=== PATIENT | male | born 1960 | race Caucasian/White ===

== ENCOUNTER → 2017-10-12 | Outpatient (CLI) | payer OTHER ==
--- NOTE | 2017-10-12 08:59 | CT ---
EXAMINATION TYPE: CT chest w con DATE OF EXAM: 10/12/2017 COMPARISON: Recent previous chest x-ray HISTORY: Abnormal cxr CT DLP: 543 mGycm Automated exposure control for dose reduction was used. CONTRAST: CT scan of the chest is performed with IV Contrast, patient injected with 100 ml mL of Omnipaque 300. FINDINGS: Multilevel degenerative disc disease seen with a age indeterminate but probable chronic com pression deformity in the midthoracic region. There is no pneumothorax. Biapical pleural thickening noted. Mild changes of COPD. Pleural-based thic kening noted posteriorly within the right lung no suspicious area of consolidation for pneumonia. Sub segmental changes involving both lung bases typical atelectasis. Within the left lower lobe axial image 49 there is a 4 mm pulmonary nodule. No pathologic adenopathy. Aorta of normal caliber. IMPRESSION: 1. 4 mm left lower lobe pulmonary nodule. Finding most likely benign in the absence of a history of p revious malignancy. Recommend follow-up 6 month study to assess for stability of size.
== END | disposition home or self-care (01) ==
LOC: RADCTMAIN 07:29
PROVIDERS: ATTEND Family Medicine
DX: R91.1 Solitary pulmonary nodule (principal)
CPT/HCPCS: 71260; 36415; Q9967

== ENCOUNTER → 2018-08-08 | Outpatient (CLI) | payer OTHER ==
[2018-08-08 17:07] LABS: Basophils # (A) 0.1 k/uL (0-0.2); Basophils % (A) 1 %; Eosinophils # (A) 0.2 k/uL (0-0.7); Eosinophils % (A) 4 %; HCT 39.9 % (39.0-53.0); Lymphocytes # (A) 1.7 k/uL (1.0-4.8); Lymphocytes % (A) 41 %; MCH 32.8 pg (25.0-35.0); MCHC 32.7 g/dL (31.0-37.0); MCV 100.4 fL (80.0-100.0); Monocytes # (A) 0.2 k/uL (0-1.0); Monocytes % (A) 6 %; Neutrophils # (A) 1.9 k/uL (1.3-7.7); Neutrophils % (A) 46 %; Platelet Count 267 k/uL (150-450); RBC 3.97 m/uL (4.30-5.90); RDW 12.8 % (11.5-15.5); WBC 4.2 k/uL (3.8-10.6)
[2018-08-08 17:33] LABS: ALT 36 U/L (21-72); AST 20 U/L (17-59); Albumin 3.9 g/dL (3.5-5.0); Alkaline Phosphatase 62 U/L (38-126); Anion Gap 5 mmol/L; Blood Urea Nitrogen 9 mg/dL (9-20); Carbon Dioxide 27 mmol/L (22-30); Chloride 102 mmol/L (98-107); Glucose 102 mg/dL (74-99); Potassium 4.2 mmol/L (3.5-5.1); Sodium 134 mmol/L (137-145); Total Bilirubin 0.8 mg/dL (0.2-1.3); Total Protein 6.4 g/dL (6.3-8.2)
== END | disposition home or self-care (01) ==
LOC: LABWHC1 16:36
PROVIDERS: ATTEND Nurse Practitioner Acute Care
DX: Z51.81 Encounter for therapeutic drug level monitoring (principal)
CPT/HCPCS: 36415; 80053; 80183; 85025

== ENCOUNTER → 2020-05-06 | Outpatient (CLI) | payer OTHER ==
--- NOTE | 2020-05-07 07:42 | CT ---
EXAMINATION TYPE: CT chest wo con DATE OF EXAM: 05/06/2020 COMPARISON: 10/12/2017 HISTORY: Follow up nodule. CT DLP: 219.4 mGycm, Automated exposure control for dose reduction was used. CONTRAST: Performed injected with 0 mL of Isovue 300. TECHNIQUE: Axial images were obtained at 5 mm thick sections. Reconstructed images are reviewed on Sverve computer in the coronal plane. FINDINGS: Portion of the thyroid visualized is normal. There is a 0.6 cm nodule in the posterior lateral left lung base this was present previously. Previou s measurement 0.5 cm utilizing similar measurement. No enlarged mediastinal or hilar adenopathy is evident. The ascending aorta diameter at the level o f the main pulmonary artery is 3.8 cm. The main pulmonary artery diameter at the bifurcation is 2.[address] sections are obtained through the upper abdomen. Abdomen is essentially unremarkable. IMPRESSIONS: 1. Persistent nodule left lower lobe. Follow-up CT chest in one year is recommended.
== END | disposition home or self-care (01) ==
LOC: RADCTMAIN 16:11
PROVIDERS: ATTEND Family Medicine
DX: R91.1 Solitary pulmonary nodule (principal); R06.02 Shortness of breath; R05 Cough
CPT/HCPCS: 71250

== ENCOUNTER 2020-06-13 20:46 | Observation (INO) | payer OTHER ==
[2020-06-13] MEDS ORDERED: dexAMETHasone 4 MG TAB PO STA (21:20)
--- NOTE | 2020-06-13 21:23 | ED ---
General Adult HPI - General Chief complaint: Shortness of Breath Stated complaint: sob/cough Time Seen by Provider: 06/13/20 21:10 Source: patient Mode of arrival: ambulatory Limitations: no limitations - History of Present Illness Initial comments: Dictation was produced using [employer] dictation software. please excuse any grammatical, word or spelling errors. This patient was cared for during a federal and state declared state of emergency secondary to Covid 19 Chief Complaint: 59-year-old male past nuchal history of asthma, COPD and bronchitis presents for shortness of breath 1 day. 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 He reports that today he was working in a building at that was approximately 160. They were able to take a break and he went into a 60 office. Patient states that after that he began feeling shortness of breath. He states that he does have mild sore throat. He does have an nonproductive cough. Denies any exposure to anyone with coronavirus or coronavirus-type symptoms. Patient states he feels short of dmitry th. He denies any chest pain. He feels like his symptoms today are similar to when he was diagnosed with bronchitis in the past. The ROS documented in this emergency department record has been reviewed and confirmed by me. Those systems with pertinent positive or negative responses have been documented in the HPI. All other systems are other negative and/or noncontributory. PHYSICAL EXAM: General Impression: Alert and oriented x3, not in acute distress HEENT: Normocephalic atraumatic, extra-ocular movements intact, pupils equal and reactive to light bilaterally, mucous membranes moist. Cardiovascular: Heart regular rate and rhythm Chest: Able to complete full sentences, no retractions, no tachypnea, mild wheezing to the left posterior lung jeffries Abdomen: abdomen soft, non-tender, non-distended, no organomegaly Musculoskeletal: Pulses present and equal in all extremities, no peripheral edema Motor: no focal deficits noted Neurological: CN II-XII grossly intact, no focal motor or sensory deficits noted Skin: Intact with no visualized rashes Psych: Normal affect and mood ED course: 59-year-old male presents with cough, shortness of breath and wheezing. Vital signs upon arrival are within acceptable limits. Patient is not hypoxic. Laboratory evaluation obtained. CBC is unremarkable. Metabolic panel is negative. Chest x-ray is nonacute. Patient given Decadron and breathing treatment with persistent symptoms. He does feel slightly improved after an initial DuoNeb. Patient will be admitted for COPD exacerbation. Patient be admitted to [facility]. Patient will be under droplet precautions for concern of possible coronavirus. EKG interpretation: Ventricular rate 70, normal sinus rhythm,. 144, QRS 94, QTC 444. No [place] prolongation, no QTC prolongation, no ST or T-wave changes noted. . Overall, this EKG is unremarkable - Related Data Home Medications Medication Instructions Recorded Confirmed Ergocalciferol [Vitamin D2] 50,000 unit PO SA 06/13/20 06/13/20 Lacosamide [Vimpat] 200 mg PO BID@0530,1730 06/13/20 06/13/20 Allergies Allergy/AdvReac Type Severity Reaction Status Date / Time codeine Allergy stomach Verified 06/13/20 22:02 cramps/HEADACHE Review of Systems ROS Statement: Those systems with pertinent positive or pertinent negative responses have been documented in the HPI. ROS Other: All systems not noted in ROS Statement are negative. Past Medical History Past Medical History: Seizure Disorder Additional Past Medical History / Comment(s): Spider bite almost 1 yr. ago to R hand. Hx. of Adenoma-NON CANCER of colon. Last seizure March 2014. History of Any Multi-Drug Resistant Organisms: None Reported Past Surgical History: Appendectomy, Bowel Resection Additional Past Surgical History / Comment(s): Colostomy, rectosigmoid resection & colostomy closed in 2008. COLONOSCOPY X6. REMOVAL MASS FROM RT HAND R/T SPIDER BITE Past Anesthesia/Blood Transfusion Reactions: No Reported Reaction Past Psychological History: No Psychological Hx Reported Smoking Status: Former smoker Past Alcohol Use History: Daily Past Drug Use History: None Reported - Past Family History Mother Family Medical History: Cancer Additional Family Medical History / Comment(s): Melanoma Father Family Medical History: Diabetes Mellitus General Exam Limitations: no limitations Course Vital Signs 06/13/20 06/13/20 06/13/20 20:51 21:17 22:10 Temperature 98.6 F Pulse Rate 78 75 Respiratory 20 18 18 Rate Blood Pressure 132/77 137/75 O2 Sat by Pulse 97 96 Oximetry 06/13/20 06/13/20 23:12 23:20 Temperature Pulse Rate 69 69 Respiratory Rate Blood Pressure O2 Sat by Pulse Oximetry Medical Decision Making - Lab Data Result diagrams: 06/13/20 22:01 06/13/20 22:01 Lab Results 06/13/20 06/13/20 Range/Units 22:01 22:01 WBC 6.7 (3.8-10.6) k/uL RBC 4.03 L (4.30-5.90) m/uL Hgb 13.8 (13.0-17.5) gm/dL Hct 41.0 (39.0-53.0) % MCV 101.7 H (80.0-100.0) fL MCH 34.2 (25.0-35.0) pg MCHC 33.6 (31.0-37.0) g/dL RDW 12.8 (11.5-15.5) % Plt Count 342 (150-450) k/uL Neutrophils % 60 % Lymphocytes % 30 % Monocytes % 6 % Eosinophils % 2 % Basophils % 1 % Neutrophils # 4.0 (1.3-7.7) k/uL Lymphocytes # 2.0 (1.0-4.8) k/uL Monocytes # 0.4 (0-1.0) k/uL Eosinophils # 0.1 (0-0.7) k/uL Basophils # 0.1 (0-0.2) k/uL Macrocytosis Slight Sodium 136 L (137-145) mmol/L Potassium 3.9 (3.5-5.1) mmol/L Chloride 106 (98-107) mmol/L Carbon Dioxide 25 (22-30) mmol/L Anion Gap 5 mmol/L BUN 13 (9-20) mg/dL Creatinine 0.68 (0.66-1.25) mg/dL Est GFR (CKD-EPI)AfAm >90 (>60 ml/min/1.73 sqM) Est GFR (CKD-EPI)NonAf >90 (>60 ml/min/1.73 sqM) Glucose 138 H (74-99) mg/dL Calcium 9.2 (8.4-10.2) mg/dL Disposition Clinical Impression: COPD exacerbation Disposition: ADMITTED IP TO THIS HOSP Condition: Fair Referrals: Laura Hinton MD [Primary Care Provider] - 1-2 days Decision Time: 23:47
--- NOTE | 2020-06-13 22:00 | XR ---
EXAMINATION TYPE: XR chest 1V portable DATE OF EXAM: 06/13/2020 COMPARISON: 09/22/2017 HISTORY: Cough TECHNIQUE: Single view FINDINGS: There is no heart failure nor confluent pneumonic infiltrate. Costophrenic angles are clear . There are no hilar masses. There are chest leads. Bony thorax is intact. IMPRESSION: No active cardiopulmonary disease. Normal heart. No change.
[2020-06-13 22:17] LABS: Basophils # (A) 0.1 k/uL (0-0.2); Basophils % (A) 1 %; Eosinophils # (A) 0.1 k/uL (0-0.7); Eosinophils % (A) 2 %; HGB 13.8 gm/dL (13.0-17.5); Lymphocytes % (A) 30 %; MCH 34.2 pg (25.0-35.0); MCHC 33.6 g/dL (31.0-37.0); MCV 101.7 fL (80.0-100.0); Macrocytosis Slight; Mean Platelet Volume 7.7; Monocytes # (A) 0.4 k/uL (0-1.0); Monocytes % (A) 6 %; Neutrophils % (A) 60 %; Platelet Count 342 k/uL (150-450); RBC 4.03 m/uL (4.30-5.90); RDW 12.8 % (11.5-15.5); WBC 6.7 k/uL (3.8-10.6)
[2020-06-13 22:32] LABS: African American GFR (CKD) >90 (>60 ml/min/1.73 sqM); Anion Gap 5 mmol/L; Blood Urea Nitrogen 13 mg/dL (9-20); Calcium 9.2 mg/dL (8.4-10.2); Carbon Dioxide 25 mmol/L (22-30); Chloride 106 mmol/L (98-107); Glucose 138 mg/dL (74-99); Non-African American GFR(CKD) >90 (>60 ml/min/1.73 sqM); Potassium 3.9 mmol/L (3.5-5.1); Sodium 136 mmol/L (137-145)
[2020-06-13] MEDS ORDERED: IPRATROPIUM-ALBUTEROL 3 ML NEB INHALATION STA (22:41)
[2020-06-13] MEDS ORDERED: AZITHROMYCIN 500 MG TAB PO SCH (23:45)
[2020-06-14 01:22] VITALS: RESP 18
[2020-06-14] MEDS: IPRATROPIUM-ALBUTEROL 3 ML NEB INHALATION PRN ×4 (03:23→16:04)
[2020-06-14] MEDS ORDERED: predniSONE 20 MG TAB PO STA (10:13)
--- NOTE | 2020-06-14 15:04 | P.HPIM ---
History of Present Illness 59-year-old male with no remote history of smoking came in with compensative shortness of breath denied orthopnea proximal nocturnal dyspnea found to have bronchitis and COPD exacerbation. COVID19 was ruled out. Patient denied any sputum production but was having cough. Patient denied any chest pain. Patient chest x-ray did not show pneumonia. Patient is on room air patient doesn't use any oxygen at home. Review of Systems REVIEW OF SYSTEMS: CONSTITUTIONAL: No fever, no malaise, no fatigue. HEENT: No recent visual problems or hearing problems. Denied any sore throat. CARDIOVASCULAR: No chest pain, orthopnea, PND, no palpitations, no syncope. PULMONARY: no hemoptysis. GASTROINTESTINAL: No diarrhea, no nausea, no vomiting, no abdominal pain. NEUROLOGICAL: No headaches, no weakness, no numbness. HEMATOLOGICAL: Denies any bleeding or petechiae. GENITOURINARY: Denies any burning micturition, frequency, or urgency. MUSCULOSKELETAL/RHEUMATOLOGICAL: Denies any joint pain, swelling, or any muscle pain. ENDOCRINE: Denies any polyuria or polydipsia. The rest of the 14-point review of systems is negative. Past Medical History Past Medical History: Seizure Disorder Additional Past Medical History / Comment(s): Spider bite almost 1 yr. ago to R hand. Hx. of Adenoma-NON CANCER of colon. Last seizure March 2014. History of Any Multi-Drug Resistant Organisms: None Reported Past Surgical History: Appendectomy, Bowel Resection Additional Past Surgical History / Comment(s): Colostomy, rectosigmoid resection & colostomy closed in 2008. COLONOSCOPY X6. REMOVAL MASS FROM RT HAND R/T SPIDER BITE Past Anesthesia/Blood Transfusion Reactions: No Reported Reaction Past Psychological History: No Psychological Hx Reported Smoking Status: Former smoker Past Alcohol Use History: Daily Additional Past Alcohol Use History / Comment(s): Quit smoking 1 yr. ago, smoked 1 PPD x 30 yrs. Past Drug Use History: None Reported - Past Family History Mother Family Medical History: Cancer Additional Family Medical History / Comment(s): Melanoma Father Family Medical History: Cancer, Diabetes Mellitus, Memory Impairment, Myocardial Infarction ([place]) Additional Family Medical History / Comment(s): pancreas CA Medications and Allergies Home Medications Medication Instructions Recorded Confirmed Type Ergocalciferol [Vitamin D2] 50,000 unit PO SA 06/13/20 06/13/20 History Lacosamide [Vimpat] 200 mg PO BID@0530,1730 06/13/20 06/13/20 History Albuterol Inhaler [Ventolin Hfa 2 puff INHALATION RT-QID PRN #1 06/14/20 Rx Inhaler] inhaler Azithromycin [Zithromax] 500 mg PO Q24H #5 tab 06/14/20 Rx Budesonide-Formot 160-4.5 Mcg 2 puff INHALATION BID #1 inhaler 06/14/20 Rx [Symbicort 160-4.5 Mcg Inhaler] predniSONE 10 mg PO DAILY #30 tab 06/14/20 Rx Allergies Allergy/AdvReac Type Severity Reaction Status Date / Time codeine Allergy stomach Verified 06/13/20 22:02 cramps/HEADACHE Physical Exam Vitals: Vital Signs Temp Pulse Pulse Resp BP BP Pulse Ox 06/14/20 12:00 75 18 125/64 06/14/20 11:07 81 06/14/20 10:56 82 06/14/20 08:00 98.3 F 89 18 124/65 06/14/20 07:45 75 06/14/20 07:33 74 96 06/14/20 04:55 97.6 F 76 18 123/70 95 06/14/20 03:32 70 06/14/20 03:23 69 06/14/20 00:19 98.1 F 71 18 149/87 96 06/14/20 00:00 70 20 129/65 97 06/13/20 23:20 69 06/13/20 23:12 69 06/13/20 22:10 75 18 137/75 96 06/13/20 21:17 18 06/13/20 20:51 98.6 F 78 20 132/77 97 Intake and Output 06/14/20 06/14/20 06/14/20 06:59 14:59 22:59 Intake Total 590 675 Balance 590 675 Intake: Oral 590 675 Other: # Voids 2 Weight 72.575 kg PHYSICAL EXAMINATION: GENERAL: The patient is alert and oriented x3, not in any acute distress. Well developed, well nourished. HEENT: Pupils are round and equally reacting to light. EOMI. No scleral icterus. No conjunctival pallor. Normocephalic, atraumatic. No pharyngeal erythema. No thyromegaly. CARDIOVASCULAR: S1 and S2 present. No murmurs, rubs, or gallops. PULMONARY: Mild rhonchi bilaterally no wheezing was appreciated ABDOMEN: Soft, nontender, nondistended, normoactive bowel sounds. No palpable organomegaly. MUSCULOSKELETAL: No joint swelling or deformity. EXTREMITIES: No cyanosis, clubbing, or pedal edema. NEUROLOGICAL: Gross neurological examination did not reveal any focal deficits. SKIN: No rashes. Results CBC & Chem 7: 06/13/20 22:01 06/13/20 22:01 Labs: Abnormal Lab Results - Last 24 Hours (Table) 06/13/20 06/13/20 Range/Units 22:01 22:01 RBC 4.03 L (4.30-5.90) m/uL MCV 101.7 H (80.0-100.0) fL Sodium 136 L (137-145) mmol/L Glucose 138 H (74-99) mg/dL Thrombosis Risk Factor Assmnt - Choose All That Apply Each Factor Represents 1 point: Abnormal pulmonary function (COPD) Other Risk Factors: Yes Each Risk Factor Represents 2 Points: Age 61-74 years Thrombosis Risk Factor Assessment Total Risk Factor Score: 3 Thrombosis Risk Factor Assessment Level: Moderate Risk Assessment and Plan Plan: -Tracheal bronchitis with mild COPD exacerbation: Patient is feeling better and hemodynamically stable patient will be ambulated and how Lasix is not requiring a naproxen patient will be discharged with the short taper of steroids, azithromycin, inhalational albuterol and inhalational steroids. -She is a disorder for which patient is on glucose mind which will be continued
--- NOTE | 2020-06-14 15:04 | P.DS ---
Providers Date of admission: 06/13/20 23:45 Attending physician: Lu Castellon Primary care physician: Laura Hinton [facility] Course: Please refer to HPI for further details Patient Condition at Discharge: Fair Plan - Discharge Summary Discharge Rx Participant: No New Discharge Prescriptions: New predniSONE 10 mg PO DAILY #30 tab Budesonide-Formot 160-4.5 Mcg [Symbicort 160-4.5 Mcg Inhaler] 2 puff INHALATION BID #1 inhaler Albuterol Inhaler [Ventolin Hfa Inhaler] 2 puff INHALATION RT-QID PRN #1 inhaler PRN Reason: Shortness Of Breath Or Wheezing Azithromycin [Zithromax] 500 mg PO Q24H #5 tab No Action Lacosamide [Vimpat] 200 mg PO BID@0530,1730 Ergocalciferol [Vitamin D2] 50,000 unit PO SA Discharge Medication List Ergocalciferol [Vitamin D2] 50,000 unit PO SA 06/13/20 [History] Lacosamide [Vimpat] 200 mg PO BID@0530,1730 06/13/20 [History] Albuterol Inhaler [Ventolin Hfa Inhaler] 2 puff INHALATION RT-QID PRN #1 inhaler 06/14/20 [Rx] Azithromycin [Zithromax] 500 mg PO Q24H #5 tab 06/14/20 [Rx] Budesonide-Formot 160-4.5 Mcg [Symbicort 160-4.5 Mcg Inhaler] 2 puff INHALATION BID #1 inhaler 06/14/20 [Rx] predniSONE 10 mg PO DAILY #30 tab 06/14/20 [Rx] Follow up Appointment(s)/Referral(s): Laura Hinton MD [Primary Care Provider] - 1-2 days
[2020-06-14 16:00] VITALS: BP 117/67; TEMP 98.1
[2020-06-14 16:14] VITALS: PULSE 80
[2020-06-14] MEDS ORDERED: LACOSAMIDE 50 MG TABLET PO SCH (17:30)
== END 2020-06-14 18:49 | disposition home or self-care (01) ==
LOC: EC 20:46 → 1SOBS 23:45
PROVIDERS: ADMIT Hospitalist; ATTEND Hospitalist
DX: J44.1 Chronic obstructive pulmonary disease with (acute) exacerbation (principal); G40.909 Epilepsy, unspecified, not intractable, without status epilepticus; Z85.038 Personal history of other malignant neoplasm of large intestine; Z90.49 Acquired absence of other specified parts of digestive tract; Z93.3 Colostomy status; Z98.890 Other specified postprocedural states; Z87.891 Personal history of nicotine dependence; Z80.8 Family history of malignant neoplasm of other organs or systems; Z83.3 Family history of diabetes mellitus; Z82.49 Family history of ischemic heart disease and other diseases of the circulatory system; Z80.0 Family history of malignant neoplasm of digestive organs; Z79.51 Long term (current) use of inhaled steroids; Z79.899 Other long term (current) drug therapy; Z88.5 Allergy status to narcotic agent
CPT/HCPCS: 99285; 36415; 94640 ×3; 93005; 80048; 85025; 71045; G0378; U0003; J8540; J7512

== ENCOUNTER → 2020-08-29 | Outpatient (CLI) | payer OTHER ==
--- NOTE | 2020-08-30 09:27 | CT ---
EXAMINATION TYPE: CT chest wo con DATE OF EXAM: 08/29/2020 COMPARISON: Prior chest CT 05/06/2020, CT 10/11/2017 HISTORY: f/u nodules CT DLP: 228.7 mGycm. Automated Exposure Control for Dose Reduction was Utilized. TECHNIQUE: CT scan of the thorax is performed without IV contrast. FINDINGS: Lack of intravenous contrast could compromise sensitivity. LUNGS: The lungs are stable, there is no concerning parenchymal mass or nodule identified, left lower lobe nodule stable 2 2016. There is no pleural effusion or pneumothorax seen. The tracheobronchia l tree is patent. MEDIASTINUM: Lack of IV contrast is noted to limit evaluation for mediastinal and especially hilar ad enopathy. There are no definitive greater than 1 cm hilar or mediastinal lymph nodes. No cardiomega ly or pericardial effusion is seen. OTHER: No additional significant abnormality is seen. IMPRESSION: Benign left lower lobe lung nodule, no additional follow-up recommended
== END | disposition home or self-care (01) ==
LOC: RADCTMAIN 17:14
PROVIDERS: ATTEND Internal Medicine Pulmonary Disease
DX: R91.1 Solitary pulmonary nodule (principal); J45.20 Mild intermittent asthma, uncomplicated; J98.4 Other disorders of lung; R56.9 Unspecified convulsions; F12.11 Cannabis abuse, in remission; Z87.891 Personal history of nicotine dependence; R06.00 Dyspnea, unspecified
CPT/HCPCS: 71250

== ENCOUNTER 2021-02-20 18:27 | Emergency (ER) | payer OTHER ==
[2021-02-20] MEDS ORDERED: SODIUM CHLORIDE 0.9% 1,000 ML IV STA (18:51)
--- NOTE | 2021-02-20 19:09 | ED ---
General Adult HPI - General Chief complaint: Weakness Stated complaint: poss Covid exposure, SOB, body aches Time Seen by Provider: 02/20/21 18:40 Source: patient Mode of arrival: ambulatory Limitations: no limitations - History of Present Illness Initial comments: 60 year-old male patient presents to the emergency department for evaluation of body aches, shortness of breath, and testicular pain. Patient states for the last couple of days he has been having pain in his "bones" states that he is able to control the pain with motrin, but each time it returns it is worse and harder to treat. Patient states with the last flare of pain he had pain to the right testicle, states it felt like he was "kicked by a horse". Patient states he is currently pain free. Denies any fever or chills. States he has had generalized abdominal discomfort and nausea. Denies vomiting. States he may have been exposed to COVID. Patient denies any recent rash, cough, shortness of breath, chest pain, back pain, numbness, tingling, dizziness, weakness, hematuria, dysuria, urinary urgency, urinary frequency, headache, visual changes, or any other complaints. - Related Data Home Medications Medication Instructions Recorded Confirmed Ergocalciferol [Vitamin D2] 50,000 unit PO SA 06/13/20 06/13/20 Lacosamide [Vimpat] 200 mg PO BID@0530,1730 06/13/20 06/13/20 Previous Rx's Medication Instructions Recorded Albuterol Inhaler [Ventolin Hfa 2 puff INHALATION RT-QID PRN #1 06/14/20 Inhaler] inhaler Azithromycin [Zithromax] 500 mg PO Q24H #5 tab 06/14/20 Budesonide-Formot 160-4.5 Mcg 2 puff INHALATION BID #1 inhaler 06/14/20 [Symbicort 160-4.5 Mcg Inhaler] predniSONE 10 mg PO DAILY #30 tab 06/14/20 Allergies Allergy/AdvReac Type Severity Reaction Status Date / Time codeine Allergy stomach Verified 06/13/20 22:02 cramps/HEADACHE Review of Systems ROS Statement: Those systems with pertinent positive or pertinent negative responses have been documented in the HPI. ROS Other: All systems not noted in ROS Statement are negative. Past Medical History Past Medical History: Asthma, COPD, Seizure Disorder Additional Past Medical History / Comment(s): Spider bite almost 1 yr. ago to R hand. Hx. of Adenoma-NON CANCER of colon. Last seizure March 2014. History of Any Multi-Drug Resistant Organisms: None Reported Past Surgical History: Appendectomy, Bowel Resection Additional Past Surgical History / Comment(s): Colostomy, rectosigmoid resection & colostomy closed in 2008. COLONOSCOPY X6. REMOVAL MASS FROM RT HAND R/T SPIDER BITE Past Anesthesia/Blood Transfusion Reactions: No Reported Reaction Past Psychological History: No Psychological Hx Reported Smoking Status: Former smoker Past Alcohol Use History: Daily Past Drug Use History: None Reported - Past Family History Mother Family Medical History: Cancer Additional Family Medical History / Comment(s): Melanoma Father Family Medical History: Cancer, Diabetes Mellitus, Memory Impairment, Myocardial Infarction ([place]) Additional Family Medical History / Comment(s): pancreas [place] General Exam Limitations: no limitations General appearance: alert, in no apparent distress, other (This is a well- developed, well-nourished adult male patient in no acute distress. Vital signs upon presentation are temperature 98.7F, pulse 88, respirations 17, blood pressure 109/73, pulse ox 99% on room air.) Eye exam: Present: normal appearance, PERRL, EOMI. Absent: scleral icterus, conjunctival injection, periorbital swelling ENT exam: Present: normal exam, normal oropharynx, mucous membranes moist Respiratory exam: Present: normal lung sounds bilaterally. Absent: respiratory distress, wheezes, rales, rhonchi, stridor Cardiovascular Exam: Present: regular rate, normal rhythm, normal heart sounds. Absent: systolic murmur, diastolic murmur, rubs, gallop, clicks GI/Abdominal exam: Present: soft, normal bowel sounds. Absent: distended, tenderness, guarding, rebound, rigid exam: Present: normal inspection. Absent: testicular tenderness, scrotal swelling Extremities exam: Present: normal inspection, full ROM, normal capillary refill. Absent: tenderness, pedal edema, joint swelling, calf tenderness Neurological exam: Present: alert, oriented X3, CN II-XII intact Psychiatric exam: Present: normal affect, normal mood Skin exam: Present: warm, dry, intact, normal color. Absent: rash Course Vital Signs 02/20/21 02/20/21 18:34 22:18 Temperature 98.7 F 98.5 F Pulse Rate 88 60 Respiratory 17 18 Rate Blood Pressure 109/73 131/80 O2 Sat by Pulse 99 99 Oximetry Medical Decision Making - Medical Decision Making 60-year-old male patient presents to the emergency department today for evaluation of generalized body aches. They resolved with Motrin. States in the pain is at its worse he does have pain in the right testicle. Physical examination revealed no scrotal swelling, no testicular tenderness, no inguinal tenderness. Vital signs are unremarkable. Labs are unremarkable. He did test positive for COVID-19. Due to age and history of asthma and COPD he did qualify for infusion of bamlanivimab. He received infusion tolerated well. A be discharged follow up with his primary care physician for recheck in 1-2 days. Return parameters were discussed in detail. He verbalizes understanding and agrees with this plan. Case discussed with my attending Dr. Roque. - Lab Data Result diagrams: 02/20/21 19:08 02/20/21 19:08 Lab Results 02/20/21 02/20/21 02/20/21 Range/Units 19:08 19:08 19:08 WBC 3.1 L (3.8-10.6) k/uL RBC 4.50 (4.30-5.90) m/uL Hgb 14.7 (13.0-17.5) gm/dL Hct 44.1 (39.0-53.0) % MCV 98.0 (80.0-100.0) fL MCH 32.7 (25.0-35.0) pg MCHC 33.4 (31.0-37.0) g/dL RDW 13.5 (11.5-15.5) % Plt Count 335 (150-450) k/uL MPV 7.5 Neutrophils % 63 % Lymphocytes % 23 % Monocytes % 8 % Eosinophils % 1 % Basophils % 3 % Neutrophils # 1.9 (1.3-7.7) k/uL Lymphocytes # 0.7 L (1.0-4.8) k/uL Monocytes # 0.2 (0-1.0) k/uL Eosinophils # 0.0 (0-0.7) k/uL Basophils # 0.1 (0-0.2) k/uL Sodium 135 L (137-145) mmol/L Potassium 4.5 (3.5-5.1) mmol/L Chloride 101 (98-107) mmol/L Carbon Dioxide 27 (22-30) mmol/L Anion Gap 7 mmol/L BUN 12 (9-20) mg/dL Creatinine 0.81 (0.66-1.25) mg/dL Est GFR (CKD-EPI)AfAm >90 (>60 ml/min/1.73 sqM) Est GFR (CKD-EPI)NonAf >90 (>60 ml/min/1.73 sqM) Glucose 103 H (74-99) mg/dL Calcium 9.4 (8.4-10.2) mg/dL Total Bilirubin 0.6 (0.2-1.3) mg/dL AST 27 (17-59) U/L ALT 17 (4-49) U/L Alkaline Phosphatase 68 (38-126) U/L Total Protein 7.1 (6.3-8.2) g/dL Albumin 4.4 (3.5-5.0) g/dL Lipase 93 (23-300) U/L Urine Color Urine Appearance (Clear) Urine pH (5.0-8.0) Ur Specific [place] (1.001-1.035) Urine Protein (Negative) Urine Glucose (UA) (Negative) Urine Ketones (Negative) Urine Blood (Negative) Urine Nitrite (Negative) Urine Bilirubin (Negative) Urine Urobilinogen (<2.0) mg/dL Ur Leukocyte Esterase (Negative) Urine RBC (0-5) /hpf Urine WBC (0-5) /hpf Ur Squamous Epith Cells (0-4) /hpf Urine Bacteria (None) /hpf Hyaline Casts (0-2) /lpf Urine Mucus (None) /hpf Coronavirus (PCR) Detected A (Not Detectd) 02/20/21 Range/Units 20:03 WBC (3.8-10.6) k/uL RBC (4.30-5.90) m/uL Hgb (13.0-17.5) gm/dL Hct (39.0-53.0) % MCV (80.0-100.0) fL MCH (25.0-35.0) pg MCHC (31.0-37.0) g/dL RDW (11.5-15.5) % Plt Count (150-450) k/uL MPV Neutrophils % % Lymphocytes % % Monocytes % % Eosinophils % % Basophils % % Neutrophils # (1.3-7.7) k/uL Lymphocytes # (1.0-4.8) k/uL Monocytes # (0-1.0) k/uL Eosinophils # (0-0.7) k/uL Basophils # (0-0.2) k/uL Sodium (137-145) mmol/L Potassium (3.5-5.1) mmol/L Chloride (98-107) mmol/L Carbon Dioxide (22-30) mmol/L Anion Gap mmol/L BUN (9-20) mg/dL Creatinine (0.66-1.25) mg/dL Est GFR (CKD-EPI)AfAm (>60 ml/min/1.73 sqM) Est GFR (CKD-EPI)NonAf (>60 ml/min/1.73 sqM) Glucose (74-99) mg/dL Calcium (8.4-10.2) mg/dL Total Bilirubin (0.2-1.3) mg/dL AST (17-59) U/L ALT (4-49) U/L Alkaline Phosphatase (38-126) U/L Total Protein (6.3-8.2) g/dL Albumin (3.5-5.0) g/dL Lipase (23-300) U/L Urine Color Yellow Urine Appearance Cloudy (Clear) Urine pH 6.5 (5.0-8.0) Ur Specific [place] 1.021 (1.001-1.035) Urine Protein Trace H (Negative) Urine Glucose (UA) Negative (Negative) Urine Ketones Trace H (Negative) Urine Blood Negative (Negative) Urine Nitrite Negative (Negative) Urine Bilirubin Negative (Negative) Urine Urobilinogen 2.0 (<2.0) mg/dL Ur Leukocyte Esterase Trace H (Negative) Urine RBC 1 (0-5) /hpf Urine WBC 5 (0-5) /hpf Ur Squamous Epith Cells 2 (0-4) /hpf Urine Bacteria Occasional H (None) /hpf Hyaline Casts 1 (0-2) /lpf Urine Mucus Moderate H (None) /hpf Coronavirus (PCR) (Not Detectd) Disposition Clinical Impression: COVID-19 Disposition: HOME SELF-CARE Condition: Good Instructions (If sedation given, give patient instructions): Coronavirus Disease 2019 (COVID-19) Additional Instructions: Alternate Tylenol Motrin for pain control. Increase fluids. Follow-up through primary care physician for recheck in 1-2 days. Return to the emergency department for any new, worsening, or concerning symptoms. Is patient prescribed a controlled substance at d/c from ED?: No Referrals: Laura Hinton MD [Primary Care Provider] - 1-2 days Time of Disposition: 23:25
[2021-02-20 19:20] LABS: Basophils # (A) 0.1 k/uL (0-0.2); Basophils % (A) 3 %; Eosinophils % (A) 1 %; HCT 44.1 % (39.0-53.0); HGB 14.7 gm/dL (13.0-17.5); Lymphocytes # (A) 0.7 k/uL (1.0-4.8); Lymphocytes % (A) 23 %; MCH 32.7 pg (25.0-35.0); MCHC 33.4 g/dL (31.0-37.0); Mean Platelet Volume 7.5; Monocytes # (A) 0.2 k/uL (0-1.0); Monocytes % (A) 8 %; Neutrophils # (A) 1.9 k/uL (1.3-7.7); Neutrophils % (A) 63 %; Platelet Count 335 k/uL (150-450); RDW 13.5 % (11.5-15.5); WBC 3.1 k/uL (3.8-10.6)
[2021-02-20 19:28] LABS: ALT 17 U/L (4-49); AST 27 U/L (17-59); African American GFR (CKD) >90 (>60 ml/min/1.73 sqM); Albumin 4.4 g/dL (3.5-5.0); Alkaline Phosphatase 68 U/L (38-126); Anion Gap 7 mmol/L; Blood Urea Nitrogen 12 mg/dL (9-20); Calcium 9.4 mg/dL (8.4-10.2); Carbon Dioxide 27 mmol/L (22-30); Chloride 101 mmol/L (98-107); Glucose 103 mg/dL (74-99); Lipase 93 U/L (23-300); Non-African American GFR(CKD) >90 (>60 ml/min/1.73 sqM); Potassium 4.5 mmol/L (3.5-5.1); Sodium 135 mmol/L (137-145); Total Bilirubin 0.6 mg/dL (0.2-1.3); Total Protein 7.1 g/dL (6.3-8.2)
[2021-02-20 20:15] LABS: Appearance,Urine Cloudy (Clear); Bacteria,Urine Occasional /hpf; Bilirubin,Urine Negative (Negative); Blood,Urine Negative (Negative); Color,Urine Yellow; Glucose,Urine (UA) Negative (Negative); Hyaline Casts,Urine 1 /lpf (0-2); Ketones,Urine Trace (Negative); Leukocyte Esterase,Urine Trace (Negative); Mucus,Urine Moderate /hpf; Nitrite,Urine Negative (Negative); PH, Urine 6.5 (5.0-8.0); Protein,Urine Trace (Negative); RBC,Urine 1 /hpf (0-5); Specific Gravity,Urine 1.021 (1.001-1.035); Squamous Epithelial Cell,Urine 2 /hpf (0-4); WBC,Urine 5 /hpf (0-5)
[2021-02-20] MEDS ORDERED: BAMLANIVIMAB 700 MG in SODIUM CHLORIDE 0.9% 50 ML IVPB ONE (21:15)
[2021-02-20 22:19] VITALS: RESP 18
[2021-02-20 23:55] VITALS: BP 127/79; PULSE 74; TEMP 98.6
== END 2021-02-20 23:55 | disposition home or self-care (01) ==
LOC: EC 18:27
DX: U07.1 COVID-19 (principal); N50.811 Right testicular pain; J44.9 Chronic obstructive pulmonary disease, unspecified; G40.909 Epilepsy, unspecified, not intractable, without status epilepticus; Z87.891 Personal history of nicotine dependence
CPT/HCPCS: 36415; 80053; 83690; 85025; 81001; 87635; 99284; 96374; 96361; Q0239

== ENCOUNTER 2021-07-07 08:45 | Day surgery (SDC) | payer OTHER ==
[2021-07-02 09:49] VITALS: BMI 23.6
[~2021-07-07 08:45] MED LIST: LACTATED RINGERS 1,000 ML IV SCH; LIDOCAINE 1% (10MG/ML) FOR IV START INTRADERMA PRN
[2021-07-07 09:12] VITALS: TEMP 98.2
[2021-07-07] MEDS ORDERED: LIDOCAINE 1% INJ 10MG/ML (20 ML MDV) ONE (09:39)
[2021-07-07] MEDS ORDERED: PROPOFOL 10 MG/ML 20 ML VIAL IV ONE (09:39)
--- NOTE | 2021-07-07 09:44 | P.GSHP ---
History of Present Illness H&P Date: 07/07/21 Chief Complaint: Colon cancer screening 60-year-old male here today for colonoscopy. Patient with history of previous colon adenoma requiring bowel resection. Unclear whether the patient has had 1 or 2 separate bowel resections. He did have a colostomy with subsequent rev ersal. Last colonoscopy 5 years ago. No bowel complaints. Past Medical History Past Medical History: Asthma, Seizure Disorder Additional Past Medical History / Comment(s): Spider bite almost 1 yr. ago to R hand. Hx. of Adenoma-states pre- cancer of colon. Last seizure March 2014. History of Any Multi-Drug Resistant Organisms: None Reported Past Surgical History: Appendectomy, Bowel Resection Additional Past Surgical History / Comment(s): Colostomy, rectosigmoid resection & colostomy closed in 2008. COLONOSCOPY X6. REMOVAL MASS FROM RT HAND R/T SPIDER BITE Past Anesthesia/Blood Transfusion Reactions: No Reported Reaction Smoking Status: Former smoker - Past Family History Mother Family Medical History: Cancer Additional Family Medical History / Comment(s): Melanoma & Breast cancer Father Family Medical History: Cancer, Diabetes Mellitus, Memory Impairment, Myocardial Infarction ([place]) Additional Family Medical History / Comment(s): pancreas [place] Medications and Allergies Home Medications Medication Instructions Recorded Confirmed Type Ergocalciferol [Vitamin D2] 50,000 unit PO SA 06/13/20 07/02/21 History Lacosamide [Vimpat] 200 mg PO BID@0530,1730 06/13/20 07/02/21 History Albuterol Inhaler [Ventolin Hfa 2 puff INHALATION RT-QID PRN #1 06/14/20 07/02/21 Rx Inhaler] inhaler Budesonide-Formot 160-4.5 Mcg 2 puff INHALATION BID #1 inhaler 06/14/20 07/02/21 Rx [Symbicort 160-4.5 Mcg Inhaler] Allergies Allergy/AdvReac Type Severity Reaction Status Date / Time codeine Allergy stomach Verified 07/07/21 09:09 cramps/HEADACHE Surgical - Exam Vital Signs Temp Pulse Resp BP Pulse Ox 98.2 F 71 16 114/71 97 07/07/21 09:10 07/07/21 09:10 07/07/21 09:10 07/07/21 09:10 07/07/21 09:10 C Physical exam: General: Well-developed, well-nourished HEENT: Normocephalic, sclerae nonicteric Abdomen: Nontender, nondistended Extremities: No edema Neuro: Alert and oriented Assessment and Plan (1) Colon cancer screening Narrative/Plan: Will proceed with colonoscopy Current Visit: No Status: Acute Code(s): Z12.11 - ENCOUNTER FOR SCREENING FOR MALIGNANT NEOPLASM OF COLON SNOMED Code(s): 861510742
--- NOTE | 2021-07-07 10:04 | P.PCN ---
Date of Procedure: 07/07/21 Procedure(s) Performed: PREOPERATIVE DIAGNOSIS: Colon cancer screening, history of polyps POSTOPERATIVE DIAGNOSIS: Transverse colon polyp, rectal polyp PROCEDURE: Colonoscopy with snare polypectomy ANESTHESIA: MAC SURGEON: Marquez Finch M.D. SPECIMENS: Polyps ENDOSCOPIC PROCEDURE: The patient was placed on the endoscopy table in the left decubitus position. The Olympus colonoscope was inserted into the anus and passed under direct visualization to the base of the cecum. The appendiceal orifice was visualized. From that point the scope was slowly withdrawn inspecting all surfaces carefully. There were no neoplastic inflammatory or polypoid lesions throughout the cecum or ascending colon. There was a previous anastomosis in the ascending colon which was widely patent. In the transverse colon a small polyp was seen and removed using the snare with cautery technique. The remainder of the transverse descending and sigmoid colon appeared normal. There was a colorectal anastomosis that was widely patent. A small polyp seen just proximal to the anastomosis. This was removed using the snare with cautery technique as well. The remainder of the rectum appeared normal. There was no visible diverticulosis. The patient was taken to the recovery room in stable condition per anesthesia guidelines. RECOMMENDATIONS: Await biopsy results. Follow-up colonoscopy 5 years
[2021-07-07 10:23] VITALS: BP 114/72; PULSE 61; RESP 16
== END 2021-07-07 11:07 | disposition home or self-care (01) ==
LOC: ORWHC2ENDO 08:45
PROVIDERS: ATTEND Surgery
DX: Z12.11 Encounter for screening for malignant neoplasm of colon (principal); D12.8 Benign neoplasm of rectum; K63.5 Polyp of colon; Z86.010 Personal history of colon polyps; Z98.0 Intestinal bypass and anastomosis status; J45.909 Unspecified asthma, uncomplicated; G40.909 Epilepsy, unspecified, not intractable, without status epilepticus; Z90.89 Acquired absence of other organs; Z98.890 Other specified postprocedural states; Z87.891 Personal history of nicotine dependence; Z80.3 Family history of malignant neoplasm of breast; Z80.8 Family history of malignant neoplasm of other organs or systems; Z83.3 Family history of diabetes mellitus; Z82.49 Family history of ischemic heart disease and other diseases of the circulatory system; Z80.0 Family history of malignant neoplasm of digestive organs; Z79.51 Long term (current) use of inhaled steroids; Z79.899 Other long term (current) drug therapy; Z88.5 Allergy status to narcotic agent
CPT/HCPCS: 88305; 45385; J2001; J2704

== ENCOUNTER 2022-07-13 17:46 | Emergency (ER) | payer OTHER ==
[2022-07-13 17:53] VITALS: RESP 18; TEMP 98.1
[2022-07-13 19:23] LABS: Basophils # (A) 0.1 k/uL (0-0.2); Basophils % (A) 2 %; Eosinophils # (A) 0.1 k/uL (0-0.7); Eosinophils % (A) 3 %; HGB 14.8 gm/dL (13.0-17.5); Lymphocytes # (A) 1.6 k/uL (1.0-4.8); Lymphocytes % (A) 32 %; MCH 33.6 pg (25.0-35.0); MCHC 32.9 g/dL (31.0-37.0); Macrocytosis Slight; Mean Platelet Volume 7.8; Monocytes # (A) 0.3 k/uL (0-1.0); Monocytes % (A) 6 %; Neutrophils # (A) 2.7 k/uL (1.3-7.7); Neutrophils % (A) 56 %; Platelet Count 537 k/uL (150-450); RBC 4.41 m/uL (4.30-5.90); RDW 13.8 % (11.5-15.5); WBC 4.9 k/uL (3.8-10.6)
[2022-07-13 19:32] LABS: ALT 17 U/L (4-49); AST 22 U/L (17-59); African American GFR (CKD) >90 (>60 ml/min/1.73 sqM); Albumin 4.4 g/dL (3.5-5.0); Alkaline Phosphatase 68 U/L (38-126); Anion Gap 9 mmol/L; Blood Urea Nitrogen 13 mg/dL (9-20); Calcium 9.4 mg/dL (8.4-10.2); Carbon Dioxide 27 mmol/L (22-30); Chloride 102 mmol/L (98-107); Glucose 96 mg/dL (74-99); INR 0.9 (<1.2); Magnesium 1.7 mg/dL (1.6-2.3); Non-African American GFR(CKD) >90 (>60 ml/min/1.73 sqM); Partial Thromboplastin Time 24.6 sec (22.0-30.0); Potassium 4.6 mmol/L (3.5-5.1); Prothrombin Time 9.6 sec (9.0-12.0); Sodium 138 mmol/L (137-145); Total Bilirubin 0.8 mg/dL (0.2-1.3); Total Protein 6.8 g/dL (6.3-8.2)
--- NOTE | 2022-07-13 20:13 | XR ---
EXAMINATION TYPE: XR chest 2V DATE OF EXAM: 07/13/2022 COMPARISON: 06/13/2020 HISTORY: Cough. Chest pain TECHNIQUE: FINDINGS: There is no heart failure nor confluent pneumonic infiltrate. Costophrenic angles are fairl y clear. There are no hilar masses. There is mild pulmonary hyperinflation. There is mild anterior we dging of mid thoracic vertebra and slight thoracic kyphosis. IMPRESSION: COPD. No acute lung disease. Mild thoracic kyphosis with up to 25% anterior wedging at C5 and T6 and T7 vertebra which are not significantly different than old CT scan of 05/16/2020.
[2022-07-13 21:12] VITALS: BP 131/80; PULSE 58
[2022-07-13] MEDS ORDERED: MAG HYDROX/AL HYDROX/SIMETH 30 ML, HYOSCYAMINE ELIXIR 10 ML, LIDOCAINE VISCOUS 2% 10 ML PO STA ×6 (21:14→23:33)
--- NOTE | 2022-07-13 21:21 | ED ---
General Adult HPI - General Chief complaint: Chest Pain Stated complaint: chest pain Time Seen by Provider: 07/13/22 20:57 Source: patient, RN notes reviewed Mode of arrival: ambulatory - History of Present Illness Initial comments: This is a pleasant 61-year-old male with a history of cardiac disease. He presents to the emergency department today complaining of left-sided chest pain and left shoulder blade area pain which started yesterday. Unrelated to activity. Patient states it feels like gas pain but then he is describing is all sensation as well. Patient has been there the entire time. Patient recently had a stress echocardiogram 2 months ago which she states was normal. Patient denying any shortness of breath. Denies any diaphoresis. Denies any nausea. Did try Tums at home as well as Pepcid with no relief. Worse with movement. No headache, no fever or chills, no changes in vision or hearing, no sore throat or difficulty with speech, no neck pain, no shortness of breath, no abdominal pain, no nausea or vomiting, no changes in urination or bowel movements, no numbness or tingling, no extremity pain, no skin rashes or lesions. Past medical, surgical, social, and family history reviewed. - Related Data Home Medications Medication Instructions Recorded Confirmed Ergocalciferol [Vitamin D2] 50,000 unit PO SA 06/13/20 07/02/21 Lacosamide [Vimpat] 200 mg PO BID@0530,1730 06/13/20 07/02/21 Previous Rx's Medication Instructions Recorded Albuterol Inhaler [Ventolin Hfa 2 puff INHALATION RT-QID PRN #1 06/14/20 Inhaler] inhaler Budesonide-Formot 160-4.5 Mcg 2 puff INHALATION BID #1 inhaler 06/14/20 [Symbicort 160-4.5 Mcg Inhaler] Acetaminophen Tab [Tylenol Tab] 500 mg PO Q6H PRN #24 tablet 07/13/22 Omeprazole [PriLOSEC] 20 mg PO DAILY #30 cap 07/13/22 Allergies Allergy/AdvReac Type Severity Reaction Status Date / Time codeine Allergy stomach Verified 07/13/22 17:53 cramps/HEADACHE Review of Systems ROS Statement: Those systems with pertinent positive or pertinent negative responses have been documented in the HPI. ROS Other: All systems not noted in ROS Statement are negative. Past Medical History Past Medical History: Asthma, Seizure Disorder Additional Past Medical History / Comment(s): Spider bite almost 1 yr. ago to R hand. Hx. of Adenoma-states pre- cancer of colon. Last seizure March 2014. History of Any Multi-Drug Resistant Organisms: None Reported Past Surgical History: Appendectomy, Bowel Resection Additional Past Surgical History / Comment(s): Colostomy, rectosigmoid resection & colostomy closed in 2008. COLONOSCOPY X6. REMOVAL MASS FROM RT HAND R/T SPIDER BITE Past Anesthesia/Blood Transfusion Reactions: No Reported Reaction Past Psychological History: No Psychological Hx Reported Smoking Status: Former smoker - Past Family History Mother Family Medical History: Cancer Additional Family Medical History / Comment(s): Melanoma & Breast cancer Father Family Medical History: Cancer, Diabetes Mellitus, Memory Impairment, Myocardial Infarction ([place]) Additional Family Medical History / Comment(s): pancreas [place] General Exam General appearance: alert, in no apparent distress Head exam: Present: atraumatic, normocephalic, normal inspection Eye exam: Present: normal appearance, PERRL, EOMI. Absent: scleral icterus, conjunctival injection, periorbital swelling ENT exam: Present: normal exam, mucous membranes moist Neck exam: Present: normal inspection, full ROM. Absent: tenderness, meningis mus, lymphadenopathy Respiratory exam: Present: normal lung sounds bilaterally, chest wall tenderness, other (Patient does have posterior chest wall pain around the left scapular area as well. Pain is exacerbated by movement the left shoulder.). Absent: respiratory distress, wheezes, rales, rhonchi, stridor, accessory muscle use, decreased breath sounds, prolonged expiratory Cardiovascular Exam: Present: regular rate, normal rhythm, normal heart sounds. Absent: systolic murmur, diastolic murmur, rubs, gallop, clicks GI/Abdominal exam: Present: soft, normal bowel sounds. Absent: distended, tenderness, guarding, rebound, rigid Extremities exam: Present: normal inspection, full ROM, normal capillary refill. Absent: tenderness, pedal edema, joint swelling, calf tenderness Back exam: Present: normal inspection, full ROM (Range of motion full with pain), tenderness, paraspinal tenderness (Thoracic paraspinal tenderness), other (Upper back pain is reproducible). Absent: vertebral tenderness Neurological exam: Present: alert, oriented X3, CN II-XII intact Psychiatric exam: Present: normal affect, normal mood Skin exam: Present: warm, dry, intact, normal color. Absent: rash Course Vital Signs 07/13/22 07/13/22 17:49 21:10 Temperature 98.1 F Pulse Rate 65 58 L Respiratory 18 18 Rate Blood Pressure 122/72 131/80 O2 Sat by Pulse 98 99 Oximetry - Reevaluation(s) Reevaluation #1: 07/13/22 23:33 Medical record is reviewed Symptoms are improved here in the emergency department Patient is informed of results and questions answered Patient in no distress EKG Findings - EKG Comments: EKG Findings:: EKG reveals sinus bradycardia with a short WI interval. WI interval 116 ms. Normal intervals otherwise. Normal axis. Normal QRS morphology. No acute ST or T-wave changes. Medical Decision Making - Medical Decision Making She presents with reproducible chest wall pain and upper back pain. I think this is likely related to thoracic radiculopathy as the patient has what appears to be old compression fractures of T8 through T10. I suspect may be an acute component disease. This is seen on plain film x-ray and on CT the chest and thoracic spine. Patient in no distress at discharge. Patient had 2 negative troponins and no acute changes on EKG. Patient very well may have some indigestion. We'll try the patient on a proton pump inhibitor and have him follow-up with both the primary care physician and the back specialist. The case was discussed in detail with ED attending physician. Presentation, findings, treatment plan discussed in detail. Patient was told to return to the ER for any signs or symptoms worsen. Told to return immediately if any other problems arise. All questions answered. Treatment plan discussed. Patient in agreement Every effort has been made to ensure accuracy of this dictation. However, due to the limitations of electronic medical records and dictation devices, errors in charting still occur. Supervising physician Dr. Anglin - Lab Data Result diagrams: 07/13/22 19:14 07/13/22 19:14 Lab Results 07/13/22 07/13/22 07/13/22 Range/Units 19:14 19:14 19:14 WBC 4.9 (3.8-10.6) k/uL RBC 4.41 (4.30-5.90) m/uL Hgb 14.8 (13.0-17.5) gm/dL Hct 45.0 (39.0-53.0) % MCV 102.0 H (80.0-100.0) fL MCH 33.6 (25.0-35.0) pg MCHC 32.9 (31.0-37.0) g/dL RDW 13.8 (11.5-15.5) % Plt Count 537 H (150-450) k/uL MPV 7.8 Neutrophils % 56 % Lymphocytes % 32 % Monocytes % 6 % Eosinophils % 3 % Basophils % 2 % Neutrophils # 2.7 (1.3-7.7) k/uL Lymphocytes # 1.6 (1.0-4.8) k/uL Monocytes # 0.3 (0-1.0) k/uL Eosinophils # 0.1 (0-0.7) k/uL Basophils # 0.1 (0-0.2) k/uL Macrocytosis Slight PT 9.6 (9.0-12.0) sec INR 0.9 (<1.2) APTT 24.6 (22.0-30.0) sec Sodium 138 (137-145) mmol/L Potassium 4.6 (3.5-5.1) mmol/L Chloride 102 (98-107) mmol/L Carbon Dioxide 27 (22-30) mmol/L Anion Gap 9 mmol/L BUN 13 (9-20) mg/dL Creatinine 0.75 (0.66-1.25) mg/dL Est GFR (CKD-EPI)AfAm >90 (>60 ml/min/1.73 sqM) Est GFR (CKD-EPI)NonAf >90 (>60 ml/min/1.73 sqM) Glucose 96 (74-99) mg/dL Calcium 9.4 (8.4-10.2) mg/dL Magnesium 1.7 (1.6-2.3) mg/dL Total Bilirubin 0.8 (0.2-1.3) mg/dL AST 22 (17-59) U/L ALT 17 (4-49) U/L Alkaline Phosphatase 68 (38-126) U/L Troponin I (0.000-0.034) ng/mL Total Protein 6.8 (6.3-8.2) g/dL Albumin 4.4 (3.5-5.0) g/dL 07/13/22 07/13/22 Range/Units 19:14 21:32 WBC (3.8-10.6) k/uL RBC (4.30-5.90) m/uL Hgb (13.0-17.5) gm/dL Hct (39.0-53.0) % MCV (80.0-100.0) fL MCH (25.0-35.0) pg MCHC (31.0-37.0) g/dL RDW (11.5-15.5) % Plt Count (150-450) k/uL MPV Neutrophils % % Lymphocytes % % Monocytes % % Eosinophils % % Basophils % % Neutrophils # (1.3-7.7) k/uL Lymphocytes # (1.0-4.8) k/uL Monocytes # (0-1.0) k/uL Eosinophils # (0-0.7) k/uL Basophils # (0-0.2) k/uL Macrocytosis PT (9.0-12.0) sec INR (<1.2) APTT (22.0-30.0) sec Sodium (137-145) mmol/L Potassium (3.5-5.1) mmol/L Chloride (98-107) mmol/L Carbon Dioxide (22-30) mmol/L Anion Gap mmol/L BUN (9-20) mg/dL Creatinine (0.66-1.25) mg/dL Est GFR (CKD-EPI)AfAm (>60 ml/min/1.73 sqM) Est GFR (CKD-EPI)NonAf (>60 ml/min/1.73 sqM) Glucose (74-99) mg/dL Calcium (8.4-10.2) mg/dL Magnesium (1.6-2.3) mg/dL Total Bilirubin (0.2-1.3) mg/dL AST (17-59) U/L ALT (4-49) U/L Alkaline Phosphatase (38-126) U/L Troponin I <0.012 <0.012 (0.000-0.034) ng/mL Total Protein (6.3-8.2) g/dL Albumin (3.5-5.0) g/dL Disposition Clinical Impression: Acute chest wall pain, Thoracic radiculopathy, Thoracic compression fracture Narrative: Chronic-appearing thoracic compression fractures, multiple levels Disposition: HOME SELF-CARE Condition: Good Instructions (If sedation given, give patient instructions): Chest Wall Pain (ED), Vertebral Compression Fracture (ED) Additional Instructions: You have what appears to be a chronic compression fracture involving multiple levels of the thoracic spine. I believe this may be causing some of your chest wall pain. Make a follow-up appointment with the back specialist as well as your regular doctor. Follow-up with your regular physician as directed. Return to the ER immediately if any symptoms worsen, new symptoms arise, or any other problems develop. Is patient prescribed a controlled substance at d/c from ED?: No Referrals: Laura Hinton MD [Primary Care Provider] - 1-2 days Charly Simmons DO [Doctor of Osteopathic Medicine] - 07/16/22 Time of Disposition: 23:36
[2022-07-13] MEDS ORDERED: NITROGLYCERIN OINT 1 INCH/GM PACKET TOPICAL STA (22:32)
--- NOTE | 2022-07-13 23:19 | CT ---
EXAMINATION TYPE: CT thoracic spine wo con DATE OF EXAM: 07/13/2022 COMPARISON: None HISTORY: recon - pain CT DLP: 0 mGycm Automated exposure control for dose reduction was used. Images obtained from the level of T1-T12 with no contrast. There is mild thoracic kyphotic deformity. There is mild anterior wedging of T10 and T9 and T8 verteb ra. T8 vertebra shows almost 50% wedging. Fractures appear old. There is no thoracic paraspinal mass. Posterior elements are intact. No focal bone destruction. IMPRESSION: Multiple old mild thoracic compression fractures with mild kyphosis. This appears stable compared to CT SCAN of the chest of 08-29-20. No acute fracture seen.
--- NOTE | 2022-07-13 23:23 | CT ---
EXAMINATION TYPE: CT chest wo con DATE OF EXAM: 07/13/2022 COMPARISON: 08/29/2020 HISTORY: pain CT DLP: 276.1 mGycm Automated exposure control for dose reduction was used. The lungs are clear of infiltrate. There is minimal linear density at the lung bases. No evidence of a pulmonary mass. No pleural effusion. Heart size is normal. No pericardial effusion. There are no hi lar masses. There is no mediastinal adenopathy. Thoracic aorta appears intact. No evidence of aneurys m. There is mild thoracic kyphotic deformity and anterior wedging of T8 and T9 and T10 vertebra witho ut change. Sternum is intact. No evidence of rib fracture. IMPRESSION: There is minimal scarring or subsegmental atelectasis at the lung bases which is increased compared to the old exam. No suspicious pulmonary mass.
[2022-07-13] MEDS ORDERED: ACETAMINOPHEN TAB 500 MG TAB PO STA (23:34)
== END 2022-07-14 00:16 | disposition home or self-care (01) ==
LOC: EC 17:46
DX: R07.89 Other chest pain (principal); M54.14 Radiculopathy, thoracic region; M48.54XA Collapsed vertebra, not elsewhere classified, thoracic region, initial encounter for fracture; J45.909 Unspecified asthma, uncomplicated; Z87.891 Personal history of nicotine dependence; Z88.5 Allergy status to narcotic agent; Z79.51 Long term (current) use of inhaled steroids
CPT/HCPCS: 36415; 71046; 71250; 72128; 80053; 83735; 84484; 85025; 85610; 85730; 93005; 99285

== ENCOUNTER → 2024-11-06 | Outpatient (CLI) | payer MEDICARE ==
--- NOTE | 2024-11-07 22:50 | US ---
EXAMINATION TYPE: US Aorta Screening DATE OF EXAM: 11/06/2024 COMPARISON: NONE CLINICAL INDICATION: Male, 64 years old with history of Z87.891 [employer]; No HTN. No hx AAA. TECHNIQUE: Multiple sonographic images of the abdominal aorta are obtained with grayscale and color D oppler imaging. FINDINGS: EXAM MEASUREMENTS: Abdominal Aorta: Proximal: 2.1 x 1.9 cm Mid: 1.7 x 1.5 cm Distal: 1.7 x 1.5 cm Bifurcation: Right Iliac: 0.7 x 0.9 cm Left Iliac: 0.9 x 1.0 cm BUTTON TACKER NOTES: No AAA visualized at time of scan IMPRESSION: No evidence for aortic aneurysm screening aortic ultrasound. [facility], , 11/07/2024 10:48 PM
== END | disposition home or self-care (01) ==
LOC: RADUSWWP 07:51
PROVIDERS: ATTEND Internal Medicine
DX: Z87.891 Personal history of nicotine dependence (principal)
CPT/HCPCS: 76706

== ENCOUNTER → 2024-12-21 | Outpatient (CLI) | payer MEDICARE ==
[2024-12-21 15:18] LABS: African American GFR (CKD) >90 (>60 ml/min/1.73 sqM); Blood Urea Nitrogen 15 mg/dL (9-20); Non-African American GFR(CKD) 89 (>60 ml/min/1.73 sqM)
--- NOTE | 2024-12-21 16:37 | CT ---
EXAMINATION TYPE: CT chest w con CT DLP: 432 mGycm, Automated exposure control for dose reduction was used. DATE OF EXAM: 12/21/2024 4:15 PM COMPARISON: CT chest 07/13/2022, 08/29/2020, 05/06/2020, 10/12/2017. CLINICAL INDICATION:Male, 64 years old with history of J98.4 Lung nodule; [facility], F/u for lung nodule on lower left lung. TECHNIQUE: Multiple axial images were obtained through the chest following the administration of 100 cc of Isovue 300. . Coronal and sagittal reformats reviewed. FINDINGS: LUNGS/ PLEURA: No pleural effusion, pneumothorax, or focal consolidation. Minimal bilateral lower lob e dependent subsegmental atelectasis. Previously seen left lower lobe pulmonary nodule is not defini tely visualized on today's exam. No clinically significant pulmonary nodules identified. AIRWAY: Patent and unremarkable.. HEART: Size within normal limits.No pericardial effusion. MEDIASTINUM: No evidence of adenopathy. VASCULATURE: No aortic aneurysm. MUSCULOSKELETAL: No acute osseous abnormalities. Anterior wedging of the T7 vertebral body redemonstr ated. No retropulsion. Approximately 50% height loss anteriorly. SOFT TISSUES/LYMPH NODES: Mild bilateral gynecomastia. LOWER NECK: No significant findings. UPPER ABDOMEN: No significant findings. IMPRESSION: No clinically significant pulmonary nodules identified. [facility], , 12/21/2024 4:34 PM
== END | disposition home or self-care (01) ==
LOC: RADCTMAIN 14:29
PROVIDERS: ATTEND Internal Medicine Hematology & Oncology
DX: J98.4 Other disorders of lung (principal)
CPT/HCPCS: 82565; 84520; 71260; 36415; Q9967